=== PATIENT | female | born 1960 | race Caucasian/White ===

== ENCOUNTER → 2017-09-26 | Outpatient (CLI) | payer BC ==
[2017-09-26 10:54] VITALS: BP 129/79; PULSE 69; TEMP 97.7; BMI 64.0
--- NOTE | 2017-09-26 11:40 | P.HPOB ---
History of Present Illness H&P Date: 09/26/17 Chief Complaint: The patient is here for her routine gynecologic exam. This is a 57-year-old with an LMP of 2012. The patient was without gynecologic complaints. She denies any postmenopausal bleeding. She was seen in 2014 because of the small amount of bloody vaginal discharge. Ultrasound was done which showed normal endometrial thickness. It's not had any vaginal bleeding since then. She is without gynecologic complaints. Review of Systems She has gained 4 pounds over the last 3 years. She denies respiratory, cardiac , or G.I. problems. 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 She had a small uterine fibroids measuring 1.3 cm by ultrasound on 09/08/2014. History of Any Multi-Drug Resistant Organisms: None Reported Additional Past Surgical History / Comment(s): D&C-1979. Colonoscopy 2009. Past Psychological History: No Psychological Hx Reported Smoking Status: Current every day smoker (1 pack per day) Past Alcohol Use History: None Reported Past Drug Use History: None Reported Additional History: She has been since 1978. 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 - Past Family History Sister(s) Family Medical History: Cancer (Cervical) Son(s) Family Medical History: AFIB Mother Family Medical History: Coronary Artery Disease (CAD) Medications and Allergies Home Medications Medication Instructions Recorded Confirmed Type Aspirin [Children's Aspirin] mg PO TID 09/26/17 History Atorvastatin [Lipitor] mg PO DAILY 09/26/17 History B12/Levomefolate Calcium/B-6 tab PO DAILY 09/26/17 History [Foltx Tablet] Allergies Allergy/AdvReac Type Severity Reaction Status Date / Time Penicillins AdvReac Rash/Hives Unverified 09/26/17 10:47 Exam Vital Signs Temp Pulse BP 09/26/17 10:50 97.7 F 69 129/79 Intake and Output 09/25/17 09/26/17 09/26/17 22:59 06:59 14:59 Other: Weight 159 kg Height 5'2", BMI 29.1. This is a well-developed well-nourished white female who is alert and oriented times 3 in no acute distress. HEENT: Within normal limits. NECK: Supple without mass or thyromegaly. CHEST AND LUNGS: Clear to auscultation. HEART: Regular rate and rhythm. BREASTS: Are without mass or discharge. AXILLARY EXAM: Negative for adenopathy. BACK: Negative for CVA tenderness. ABDOMEN: Soft, nontender, without palpable masses. PELVIC EXAM: Normal external genitalia with mild atrophy. Cervix and vagina appear normal with mild atrophy. There is no unusual discharge. There is no evidence of prolapse. The uterus is midposition, nongravid size and nontender. There are no palpable adnexal masses or tenderness. RECTAL EXAM: act over vaginal exam is negative for mass or tenderness and is negative for occult blood. EXTREMITIES: Nontender. IMPRESSION: 1. 57-year-old menopausal female with normal gynecologic exam. 2. History of small uterine fibroid measuring 1.3 cm which is not noticeable on exam. PLAN: 1. Pap smear was performed. 2. Self breast awareness was discussed. 3. Screening mammogram is due. She has an appointment on 10/20/2017 for this. The order slip was given to the patient for this. 4. Osteoporosis prevention was discussed. 5. She will return in one year.
== END | disposition home or self-care (01) ==
LOC: WWCWWP 10:29
PROVIDERS: ATTEND Obstetrics & Gynecology
DX: Z53.9 Procedure and treatment not carried out, unspecified reason (principal)

== ENCOUNTER → 2017-10-20 | Outpatient (CLI) | payer BC ==
--- NOTE | 2017-10-25 07:45 | MM ---
Reason for exam: screening (asymptomatic). Last mammogram was performed 3 years and 2 months ago. History: Patient is postmenopausal. Physical Findings: A clinical breast exam by your physician is recommended on an annual basis and results should be correlated with mammographic findings. MG 3D Screening Mammo W/Cad Bilateral CC and MLO view(s) were taken. Prior study comparison: August 27, 2014, bilateral MG screening mammo w CAD. March 12, 2013, bilateral digital screening mammo w/CAD. The breast tissue is almost entirely fat. No significant changes when compared with prior studies. ASSESSMENT: Benign, BI-RAD 2 RECOMMENDATION: Routine screening mammogram of both breasts in 1 year.
== END | disposition home or self-care (01) ==
LOC: RADMAMWWP 10:09
PROVIDERS: ATTEND Obstetrics & Gynecology
DX: Z12.31 Encounter for screening mammogram for malignant neoplasm of breast (principal)
CPT/HCPCS: 77063; 77067

== ENCOUNTER → 2019-08-28 | Outpatient (CLI) | payer BC ==
--- NOTE | 2019-08-28 22:23 | WWHP ---
[facility] - HISTORY AND PHYSICAL DATE OF DICTATION: 08/28/2019 CHIEF COMPLAINT: The patient is here for her routine gynecologic exam. HISTORY OF PRESENT ILLNESS: This is a 59-year-old G3, P2-0-1-2 with an LMP of 2013. The patient is without gynecologic complaints and denies any postmenopausal bleeding. PAST MEDICAL HISTORY: Hyperlipidemia. MEDICATIONS AND ALLERGIES: Please see the electronic medical record. PAST SURGICAL HISTORY: D&C in 1979, colonoscopy 2009, removal of epiglottic cyst in the past. SOCIAL HISTORY: She smokes 6 cigarettes per day. Alcohol rarely -- about 6 per year. She denies drug use. 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 FAMILY HISTORY: Sister had cervical cancer and another sister has had hypercalcemia and heart problems. Son has atrial fibrillation. Mother with coronary artery disease. 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 REVIEW OF SYSTEMS: She has gained about 10 pounds over the last year. She denies respiratory, cardiac or GI problems. PHYSICAL EXAMINATION: Blood pressure 122/79, height 5 feet 2 inches, weight 169 pounds. Temperature 98.5, pulse 66, pulse oximeter 96%. This is a well-developed, well-nourished white female who is alert and oriented x3, in no acute distress. HEENT: Within normal limits. NECK: Supple without mass or thyromegaly. CHEST AND LUNGS: Clear to auscultation. HEART: Regular rate and rhythm. Breasts are without mass or discharge. Axillary exam is negative for adenopathy. BACK: Negative for CVA tenderness. ABDOMEN: Soft, nontender, without palpable masses. PELVIC EXAM: External genitalia reveal mild atrophy without lesions. Cervix and vagina appear normal with mild atrophy. There is no unusual discharge and no evidence of pelvic prolapse. The uterus is mid position, non-gravid size and nontender. There are no palpable adnexal masses or tenderness. Rectovaginal exam is negative for mass or tenderness and is negative for occult blood. EXTREMITIES: Nontender. IMPRESSION: 1. [id number] menopausal female with normal gynecologic exam. 2. History of small uterine fibroid, which is not noticeable on examination today. PLAN: 1. Pap smear was deferred since she had a normal one on 09/26/2017. 2. Self breast awareness was discussed with the patient. 3. Screening mammogram is due. The order slip was given to the patient for this and she will schedule this in the near future. 4. Osteoporosis prevention was discussed. I have recommended bone density screening, since she has never had this done. The order slip was given to the patient for this. 5. I have recommended screening colonoscopy, since it has been about 10 years. She states she will be speaking with her primary care physician about this in the near future. 6. I have recommended that she quit smoking, and we have discussed many reasons why this is important. 7. She will return in one year for her well-woman examination. MMODL / IJN: [id number] /
[2019-08-30 09:22] VITALS: BP 122/79; PULSE 66; RESP 18; TEMP 98.5
== END | disposition home or self-care (01) ==
LOC: WWCWWP 09:00
PROVIDERS: ATTEND Obstetrics & Gynecology
DX: Z53.9 Procedure and treatment not carried out, unspecified reason (principal)

== ENCOUNTER → 2019-10-23 | Outpatient (CLI) | payer BC ==
--- NOTE | 2019-10-24 10:56 | MM ---
Reason for exam: screening (asymptomatic). Last mammogram was performed 2 years ago. History: Patient is postmenopausal. Physical Findings: A clinical breast exam by your physician is recommended on an annual basis and results should be correlated with mammographic findings. MG 3D Screening Mammo W/Cad Bilateral CC and MLO view(s) were taken. Prior study comparison: October 20, 2017, bilateral MG 3d screening mammo w/cad. August 27, 2014, bilateral MG screening mammo w CAD. There are scattered fibroglandular densities. There is no discrete abnormality. No significant changes when compared with prior studies. ASSESSMENT: Negative, BI-RAD 1 RECOMMENDATION: Routine screening mammogram of both breasts in 1 year.
--- NOTE | 2019-10-24 16:47 | BD ---
EXAMINATION TYPE: Axial Bone Density DATE OF EXAM: 10/23/2019 COMPARISON: NONE CLINICAL HISTORY: 59-year-old female postmenopausal screening Height: 62 Weight: 161.8 FRAX RISK QUESTIONS: Alcohol (3 or more units per day): no Family History (Parent hip fracture): no Glucocorticoids (More than 3mos): no (Ex: prednisone, prednisolone, methylprednisolone, dexamethasone, and hydrocortisone). History of Fracture in Adulthood: no Secondary Osteoporosis: 1. Type 1 Diabetes: no 2. Hyperthyroidism: no 3. Menopause before 45: no 4. Malnutrition: no 5. Chronic liver disease: no Rheumatoid Arthritis: no Current Tobacco Use: yes RISK FACTORS HISTORY OF: Family History of Osteoporosis: no Active: yes Diet low in dairy products/other sources of calcium: yes Postmenopausal woman: age52 Lost more than 2 inches in height since high school: no MEDICATIONS: aspirin, vit b complex Additional History: EXAM MEASUREMENTS: Bone mineral densitometry was performed using the [employer] System. Bone mineral density as measured about the Lumbar spine is: ----- L1-L4(G/cm2): 1.085 T Score Values are as follows: ----- L2: -1.4 ----- L3: 0.0 ----- L4: -1.0 ----- L1-L4: -0.8 Bone mineral density : baseline Bone mineral density about the R hip (g/cm2): 1.009 Bone mineral density about the L hip (g/cm2): 0.928 T Score values are as follows: -----R Neck: -0.2 -----L Neck: -0.8 -----R Total: -0.3 -----L Total: -0.3 Bone mineral density : baseline IMPRESSION: Normal (Values between +1 and -1 indicate normal bone mass). Note that measurements are approaching o steopenia in the lumbar spine. Consider repeating this study in 5 years or sooner if there is some new clinical indication. NOTE: T-SCORE=SD OF THE YOUNG ADULT MEAN.
== END | disposition home or self-care (01) ==
LOC: RADMAMWWP 15:38
PROVIDERS: ATTEND Obstetrics & Gynecology
DX: Z12.31 Encounter for screening mammogram for malignant neoplasm of breast (principal); M85.88 Other specified disorders of bone density and structure, other site; Z78.0 Asymptomatic menopausal state
CPT/HCPCS: 77063; 77067; 77080

== ENCOUNTER 2021-09-20 20:40 | Inpatient (IN) | payer BC ==
[2021-09-20] MEDS ORDERED: KETOROLAC 15 MG/ML 1 ML VIAL IVP STA (23:05)
[2021-09-20] MEDS ORDERED: MORPHINE SULFATE 4 MG/ML SYRINGE IV STA (23:05)
[2021-09-20] MEDS ORDERED: ONDANSETRON 4 MG/2 ML VIAL IVP STA (23:05)
[2021-09-20] MEDS ORDERED: SODIUM CHLORIDE 0.9% 1,000 ML IV STA (23:05)
--- NOTE | 2021-09-20 23:07 | ED ---
Abdominal Pain HPI - General Chief Complaint: Abdominal Pain Stated Complaint: right upper quadrant pain Time Seen by Provider: 09/20/21 23:05 Source: patient Mode of arrival: ambulatory Limitations: no limitations - Related Data Home Medications Medication Instructions Recorded Confirmed Aspirin [Children's Aspirin] 81 mg PO TID 09/26/17 08/28/19 Atorvastatin [Lipitor] 10 mg PO DAILY 09/26/17 08/28/19 B12/Levomefolate Calcium/B-6 1 tab PO DAILY 09/26/17 08/28/19 [Foltx Tablet] Allergies Allergy/AdvReac Type Severity Reaction Status Date / Time Penicillins AdvReac Rash/Hives Verified 09/20/21 21:06 Review of Systems ROS Statement: Those systems with pertinent positive or pertinent negative responses have been documented in the HPI. ROS Other: All systems not noted in ROS Statement are negative. 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 She had a small uterine fibroids measuring 1.3 cm by ultrasound on 09/08/2014. History of Any Multi-Drug Resistant Organisms: None Reported Additional Past Surgical History / Comment(s): D&C-1979. Colonoscopy 2009. right wrist cyst Past Psychological History: No Psychological Hx Reported Smoking Status: Never smoker Past Alcohol Use History: None Reported Past Drug Use History: None Reported - Past Family History Sister(s) Family Medical History: Cancer Son(s) Family Medical History: AFIB Mother Family Medical History: Coronary Artery Disease (CAD) General Exam Limitations: no limitations Course Vital Signs 09/20/21 09/21/21 21:07 00:14 Temperature 98.1 F Pulse Rate 63 55 L Respiratory 16 16 Rate Blood Pressure 147/87 136/67 O2 Sat by Pulse 98 96 Oximetry Medical Decision Making - Lab Data Result diagrams: 09/20/21 23:42 09/20/21 23:42 Lab Results 09/20/21 09/20/21 09/20/21 Range/Units 23:42 23:42 23:42 WBC 11.8 H (3.8-10.6) k/uL RBC 4.76 (3.80-5.40) m/uL Hgb 14.6 (11.4-16.0) gm/dL Hct 43.4 (34.0-46.0) % MCV 91.2 (80.0-100.0) fL MCH 30.6 (25.0-35.0) pg MCHC 33.6 (31.0-37.0) g/dL RDW 12.5 (11.5-15.5) % Plt Count 272 (150-450) k/uL MPV 7.2 Neutrophils % 88 % Lymphocytes % 8 % Monocytes % 3 % Eosinophils % 1 % Basophils % 0 % Neutrophils # 10.3 H (1.3-7.7) k/uL Lymphocytes # 0.9 L (1.0-4.8) k/uL Monocytes # 0.4 (0-1.0) k/uL Eosinophils # 0.1 (0-0.7) k/uL Basophils # 0.0 (0-0.2) k/uL PT 10.1 (9.0-12.0) sec INR 0.9 (<1.2) APTT 22.7 (22.0-30.0) sec Sodium 137 (137-145) mmol/L Potassium 3.9 (3.5-5.1) mmol/L Chloride 102 (98-107) mmol/L Carbon Dioxide 26 (22-30) mmol/L Anion Gap 9 mmol/L BUN 12 (7-17) mg/dL Creatinine 0.71 (0.52-1.04) mg/dL Est GFR (CKD-EPI)AfAm >90 (>60 ml/min/1.73 sqM) Est GFR (CKD-EPI)NonAf >90 (>60 ml/min/1.73 sqM) Glucose 110 H (74-99) mg/dL Plasma Lactic Acid Baltazar (0.7-2.0) mmol/L Calcium 9.2 (8.4-10.2) mg/dL Total Bilirubin 4.0 H (0.2-1.3) mg/dL AST 474 H (14-36) U/L ALT 808 H (4-34) U/L Alkaline Phosphatase 232 H (38-126) U/L Troponin I (0.000-0.034) ng/mL Total Protein 6.9 (6.3-8.2) g/dL Albumin 4.2 (3.5-5.0) g/dL Amylase (30-110) U/L 09/20/21 09/20/21 Range/Units 23:42 23:42 WBC (3.8-10.6) k/uL RBC (3.80-5.40) m/uL Hgb (11.4-16.0) gm/dL Hct (34.0-46.0) % MCV (80.0-100.0) fL MCH (25.0-35.0) pg MCHC (31.0-37.0) g/dL RDW (11.5-15.5) % Plt Count (150-450) k/uL MPV Neutrophils % % Lymphocytes % % Monocytes % % Eosinophils % % Basophils % % Neutrophils # (1.3-7.7) k/uL Lymphocytes # (1.0-4.8) k/uL Monocytes # (0-1.0) k/uL Eosinophils # (0-0.7) k/uL Basophils # (0-0.2) k/uL PT (9.0-12.0) sec INR (<1.2) APTT (22.0-30.0) sec Sodium (137-145) mmol/L Potassium (3.5-5.1) mmol/L Chloride (98-107) mmol/L Carbon Dioxide (22-30) mmol/L Anion Gap mmol/L BUN (7-17) mg/dL Creatinine (0.52-1.04) mg/dL Est GFR (CKD-EPI)AfAm (>60 ml/min/1.73 sqM) Est GFR (CKD-EPI)NonAf (>60 ml/min/1.73 sqM) Glucose (74-99) mg/dL Plasma Lactic Acid Baltazar 1.0 (0.7-2.0) mmol/L Calcium (8.4-10.2) mg/dL Total Bilirubin (0.2-1.3) mg/dL AST (14-36) U/L ALT (4-34) U/L Alkaline Phosphatase (38-126) U/L Troponin I <0.012 (0.000-0.034) ng/mL Total Protein (6.3-8.2) g/dL Albumin (3.5-5.0) g/dL Amylase (30-110) U/L Disposition Clinical Impression: Abdominal colic, Pancreatitis, Cholecystitis Disposition: ADMITTED IP TO THIS HOSP Condition: Fair Is patient prescribed a controlled substance at d/c from ED?: No Referrals: Prasad Cooley MD [Primary Care Provider] - 1-2 days
[2021-09-21 00:03] LABS: Basophils % (A) 0 %; Eosinophils # (A) 0.1 k/uL (0-0.7); Eosinophils % (A) 1 %; HCT 43.4 % (34.0-46.0); HGB 14.6 gm/dL (11.4-16.0); Lymphocytes # (A) 0.9 k/uL (1.0-4.8); Lymphocytes % (A) 8 %; MCH 30.6 pg (25.0-35.0); MCHC 33.6 g/dL (31.0-37.0); MCV 91.2 fL (80.0-100.0); Mean Platelet Volume 7.2; Monocytes # (A) 0.4 k/uL (0-1.0); Monocytes % (A) 3 %; Neutrophils # (A) 10.3 k/uL (1.3-7.7); Neutrophils % (A) 88 %; Platelet Count 272 k/uL (150-450); RBC 4.76 m/uL (3.80-5.40); RDW 12.5 % (11.5-15.5); WBC 11.8 k/uL (3.8-10.6)
[2021-09-21 00:12] LABS: INR 0.9 (<1.2); Partial Thromboplastin Time 22.7 sec (22.0-30.0); Prothrombin Time 10.1 sec (9.0-12.0)
[2021-09-21 00:21] LABS: AST 474 U/L (14-36); African American GFR (CKD) >90 (>60 ml/min/1.73 sqM); Albumin 4.2 g/dL (3.5-5.0); Alkaline Phosphatase 232 U/L (38-126); Anion Gap 9 mmol/L; Blood Urea Nitrogen 12 mg/dL (7-17); Calcium 9.2 mg/dL (8.4-10.2); Carbon Dioxide 26 mmol/L (22-30); Chloride 102 mmol/L (98-107); Glucose 110 mg/dL (74-99); Non-African American GFR(CKD) >90 (>60 ml/min/1.73 sqM); Potassium 3.9 mmol/L (3.5-5.1); Sodium 137 mmol/L (137-145); Total Protein 6.9 g/dL (6.3-8.2)
--- NOTE | 2021-09-21 00:40 | US ---
EXAMINATION TYPE: US gallbladder DATE OF EXAM: 09/21/2021 COMPARISON: NONE CLINICAL HISTORY: pain. RUQ pain x 6 days TECHNIQUE: Multiple sonographic images of the right upper quadrant are obtained. FINDINGS: EXAM MEASUREMENTS: Liver Length: 12.0 cm Gallbladder Wall: 0.61 cm CBD: 0.61 cm Right Kidney: 10.5 x 5.4 x 5.1 cm EXPORT COORDINATOR NOTES: Pancreas: Parts visualized WNL Liver: wnl Gallbladder: Thickened GB wall, ? sludge Evidence for sonographic Lamb's sign: Yes CBD: wnl Right Kidney: wnl IMPRESSION: There is mild gallbladder wall thickening. No gallstones identified. No dilated ducts.
[2021-09-21] MEDS ORDERED: HYDROmorphone 1 MG/ML 1 ML SYRINGE IVP PRN (00:47)
[2021-09-21] MEDS ORDERED: ONDANSETRON 4 MG/2 ML VIAL IVP PRN (00:47)
[2021-09-21] MEDS ORDERED: NALOXONE 0.4 MG/ML 1 ML VIAL IV PRN (00:47)
[2021-09-21 00:59] LABS: ALT 808 U/L (4-34)
[2021-09-21] MEDS ORDERED: LEVOFLOXACIN 500MG-D5W PMX 500 MG in DEXTROSE/WATER 1 100ML.BAG IVPB STA (01:00)
[2021-09-21] MEDS ORDERED: metroNIDAZOLE-NS PMX 500 MG in SALINE 1 100ML.BAG IVPB STA (01:00)
[2021-09-21 01:01] LABS: Amylase 4378 U/L (30-110)
[2021-09-21 01:02] LABS: Lipase >20000 U/L (23-300)
[2021-09-21 02:06] LABS: Appearance,Urine Cloudy (Clear); Bacteria,Urine Rare /hpf; Bilirubin,Urine 2+ (Negative); Blood,Urine Negative (Negative); Color,Urine Dark Yellow; Glucose,Urine (UA) Negative (Negative); Hyaline Casts,Urine 1 /lpf (0-2); Ketones,Urine 3+ (Negative); Leukocyte Esterase,Urine Negative (Negative); Mucus,Urine Moderate /hpf; Nitrite,Urine Negative (Negative); Protein,Urine Trace (Negative); RBC,Urine <1 /hpf (0-5); Squamous Epithelial Cell,Urine 5 /hpf (0-4); WBC,Urine 1 /hpf (0-5)
[2021-09-21] MEDS: SODIUM CHLORIDE 0.9% 1,000 ML IV SCH ×2 (02:34→09:03)
[2021-09-21] MEDS: PANTOPRAZOLE 40 MG/10 ML VIAL IV SCH (09:02)
[2021-09-21 11:09] LABS: Basophils # (A) 0.1 k/uL (0-0.2); Basophils % (A) 1 %; Eosinophils # (A) 0.2 k/uL (0-0.7); Eosinophils % (A) 2 %; HCT 41.6 % (34.0-46.0); HGB 13.1 gm/dL (11.4-16.0); Lymphocytes # (A) 1.5 k/uL (1.0-4.8); Lymphocytes % (A) 16 %; MCH 29.5 pg (25.0-35.0); MCHC 31.4 g/dL (31.0-37.0); Mean Platelet Volume 7.4; Monocytes # (A) 0.4 k/uL (0-1.0); Monocytes % (A) 5 %; Neutrophils # (A) 7.3 k/uL (1.3-7.7); Neutrophils % (A) 77 %; Platelet Count 268 k/uL (150-450); RBC 4.43 m/uL (3.80-5.40); RDW 12.7 % (11.5-15.5); WBC 9.5 k/uL (3.8-10.6)
--- NOTE | 2021-09-21 11:15 | P.CONS ---
History of Present Illness - Reason for Consult Consult date: 09/21/21 Gallstone pancreatitis Requesting physician: Shailesh Mccord - Chief Complaint Right upper quadrant pain - History of Present Illness This is a pleasant 61-year-old female with a past medical history of hyperlipidemia who presented to the emergency department late yesterday evening with complaints of right upper quadrant pain associated with nausea and vomiting. Patient states she has had ongoing gallbladder issues for the last several years she believes since 2016. She states she has been seen before in the emergency department and sent home. She states that she did follow at one time with a surgeon however was during cold and patient was not scheduled for any procedures. She states she started having pain and discomfort history of last week Monday, however yesterday she began with nausea and vomiting and noticed that her urine was becoming dark and she became concerned. She states that in September 2019 she had a similar episode was seen in the ER and underwent what she believes an EGD in 2019 at [facility]. She states that she believes she had a polyp. She she reports most of her pain in the right upper quadrant and epigastric area. He denied any fevers or chills. She had an ultrasound of the gallbladder showing mild gallbladder wall thickening. No gallstones identified. No dilated ducts. CBD within normal limits measuring 0.61 cm. The patient states abdominal pain is improved today. No further nausea or vomiting. She denies any fevers or chills. Labs: WBC 11.8 hemoglobin 14.6 hematocrit 43 platelet count 272 INR 0.9 sodium 137 potassium 3.9 BUN 12 creatinine 0.7 glucose 110 total bilirubin 4.0 AST 474 ALT 808 alkaline phosphatase 232 amylase 4378 lipase greater than 20,000 Review of Systems REVIEW OF SYSTEMS: CARDIOPULMONARY: No chest pain or shortness of breath. Gastrointestinal: Epigastric and right upper quadrant pain. Associated with nausea and vomiting. No hematemesis, coffee-ground emesis. No rectal bleeding, or melena. GENITOURINARY: No dysuria or hematuria. Dark urine. MUSCULOSKELETAL: Reports normal range of motion. SKIN: No rashes. No jaundice. ENDOCRINE: No chills, fevers. No excessive weight gain or loss. No polydipsia or polyuria. PSYCHIATRIC: Unremarkable. NEUROLOGY: No change in mental status. Denies dizziness, headache. ENT: Vision unremarkable. CONSTITUTIONAL: No recent weight loss. No fever, chills, night sweats. 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 She had a small uterine fibroids measuring 1.3 cm by ultrasound on 09/08/2014. History of Any Multi-Drug Resistant Organisms: None Reported Additional Past Surgical History / Comment(s): D&C-1979. Colonoscopy 2009. right wrist cyst Past Psychological History: No Psychological Hx Reported Smoking Status: Never smoker Past Alcohol Use History: None Reported Past Drug Use History: None Reported - Past Family History Sister(s) Family Medical History: Cancer Son(s) Family Medical History: AFIB Mother Family Medical History: Coronary Artery Disease (CAD) Medications and Allergies Home Medications Medication Instructions Recorded Confirmed Type Atorvastatin [Lipitor] 10 mg PO DAILY 09/26/17 09/21/21 History Vitamin B Complex 1 cap PO DAILY 09/21/21 09/21/21 History Allergies Allergy/AdvReac Type Severity Reaction Status Date / Time Penicillins Allergy Rash/Hives Verified 09/21/21 07:33 Physical Exam Vitals: Vital Signs Temp Pulse Resp BP Pulse Ox 09/21/21 09:05 68 20 129/72 97 09/21/21 06:29 98 F 72 20 127/77 97 09/21/21 02:41 55 L 16 137/76 98 09/21/21 00:14 55 L 16 136/67 96 09/20/21 21:07 98.1 F 63 16 147/87 98 Intake and Output 09/20/21 09/21/21 09/21/21 22:59 06:59 14:59 Other: Weight 73.482 kg General appearance: The patient is alert, oriented, appears in no acute distress. HET: Head is normocephalic and atraumatic. Conjunctiva pink. Sclera anicteric. Neck: Supple without lymphadenopathy. Trachea midline. Heart: S1 S2. Regular rate and rhythm. Lungs: Clear to auscultation. Abdomen: Soft, mild right upper quadrant tenderness nondistended with bowel sounds. No guarding or rigidity. Skin: No rashes. No jaundice. Extremities: Normal skin color and turgor. No pedal edema. Neurological: No focal deficits. Alert and oriented x3. Results CBC & Chem 7: 09/21/21 10:12 09/21/21 10:12 Labs: Abnormal Lab Results - Last 24 Hours (Table) 09/20/21 09/20/21 09/21/21 Range/Units 23:42 23:42 01:35 WBC 11.8 H (3.8-10.6) k/uL Neutrophils # 10.3 H (1.3-7.7) k/uL Lymphocytes # 0.9 L (1.0-4.8) k/uL Glucose 110 H (74-99) mg/dL Total Bilirubin 4.0 H (0.2-1.3) mg/dL AST 474 H (14-36) U/L ALT 808 H (4-34) U/L Alkaline Phosphatase 232 H (38-126) U/L Amylase 4378 H* (30-110) U/L Lipase >13904 H (23-300) U/L Urine Appearance Cloudy H (Clear) Urine Protein Trace H (Negative) Urine Ketones 3+ H (Negative) Urine Bilirubin 2+ H (Negative) Ur Squamous Epith Cells 5 H (0-4) /hpf Urine Bacteria Rare H (None) /hpf Urine Mucus Moderate H (None) /hpf US - abdomen: report reviewed (Mild gallbladder wall thickening. No gallstones identified. No dilated ducts.) Assessment and Plan (1) Pancreatitis Narrative/Plan: 61-year-old female with a history of gallbladder dysfunction for multiple years. Patient is not followed with a general surgeon. Started having symptoms since last Monday with yesterday becoming concerned with increased abdominal pain, nausea vomiting and dark urine. Patient was noted to have significant elevated amylase and lipase, as well as LFTs. Showing mild gallbladder wall thickening, no gallstones, no CBD dilation. Patient denies fevers or chills pain is improving. Was able to obtain patient's prior EGD/[facility]US from [facility] done on 01/03/2020. EGD revealed multiple rings seen in the esophagus status post biopsy, small sliding hiatal hernia, nodule seen and third portion of duodenum status post biopsies. Endoscopic ultrasound revealed pancreas parenchyma appeared normal, main pancreatic was not dilated. There was no cyst or mass lesions seen. Gallbladder appeared truncated with multiple gallstones, gallbladder wall is mildly thickened at 2.8 mm. Common bile duct not dilated, no. Pancreatic epigastric or celiac ulcers. Will obtain MRCP for further evaluation of possible choledocholithiasis clinical picture is consistent with gallstone pancreatitis. Current Visit: Yes Status: Acute Code(s): K85.90 - ACUTE PANCREATITIS WITHOUT NECROSIS OR INFECTION, UNSP SNOMED Code(s): 11302115 (2) Cholecystitis Current Visit: Yes Status: Acute Code(s): K81.9 - CHOLECYSTITIS, UNSPECIFIED SNOMED Code(s): 85725540 Plan: 1. Continue symptomatic and supportive care 2. Continue antiemetics as needed 3. Pain medication as needed 4. Continue IV antibiotics as ordered 5. MRCP ordered 6. Repeat CBC, CMP, lipase 7. Keep nothing by mouth for now, may advance to clear liquid diet after MRCP 8. Continue with recommendations from general surgery 9. Please obtain records from [facility] in 2020 10. Further recommendations forthcoming based on clinical course Thank you for this consultation, we will continue to follow. Dr. Renee Michael I agree with the dictator's note, documented as a scribe by Christina Benavidez.
[2021-09-21 11:26] LABS: ALT 558 U/L (4-34); AST 253 U/L (14-36); African American GFR (CKD) >90 (>60 ml/min/1.73 sqM); Albumin 3.4 g/dL (3.5-5.0); Albumin/Globulin Ratio 1.4; Alkaline Phosphatase 197 U/L (38-126); Anion Gap 5 mmol/L; Blood Urea Nitrogen 11 mg/dL (7-17); Calcium 7.8 mg/dL (8.4-10.2); Carbon Dioxide 24 mmol/L (22-30); Chloride 109 mmol/L (98-107); Globulin 2.4 g/dL; Glucose 70 mg/dL (74-99); Non-African American GFR(CKD) >90 (>60 ml/min/1.73 sqM); Potassium 3.8 mmol/L (3.5-5.1); Sodium 138 mmol/L (137-145); Total Bilirubin 1.2 mg/dL (0.2-1.3); Total Protein 5.8 g/dL (6.3-8.2)
--- NOTE | 2021-09-21 11:26 | P.GSCN ---
History of Present Illness Consult date: 09/21/21 History of present illness: CHIEF COMPLAINT: Abdominal pain HISTORY OF PRESENT ILLNESS: This is a 61-year-old female who presented to the hospital with complaints of right upper quadrant epigastric abdominal pain 1 week. Patient reports that she's had these types of abdominal pains off and on for years. She has a history of gallstones. Usually the pain resolves on its own. She does report increasing pain after eating greasy or fatty foods. She came into the ER because she started having vomiting and her urine became dark. She reports that the pain is in the right upper quadrant radiates the epigastric and down the right side of the abdomen. Her liver enzymes and pancreatic enzymes are elevated. She is scheduled for an MRCP today and is followed by GI service. She is currently nothing by mouth. She reports that her pain has improved. Ultrasound had shown mild gallbladder wall thickening. No gallstones. No dilated ducts. Positive Lamb sign. She denies any fever chills or sweats. Denies alcohol use. PAST MEDICAL HISTORY: Hyperlipidemia, uterine fibroids PAST SURGICAL HISTORY: D&C, colonoscopy, EGD MEDICATIONS: See list. ALLERGIES: See list. SOCIAL HISTORY: No illicit drug use. Smoker REVIEW OF SYSTEMS: CONSTITUTIONAL: Denies fever or chills. HEENT: Denies blurred vision, vision changes, or eye pain. Denies hemoptysis CARDIOVASCULAR: Denies chest pain or pressure. RESPIRATORY: No shortness of breath. GASTROINTESTINAL: See HPI for pertinent findings HEMATOLOGIC: Denies bleeding disorders. GENITOURINARY: Denies any blood in urine or increased urinary frequency. SKIN: Denies pruitis. Denies rash. PHYSICAL EXAM: VITAL SIGNS: Reviewed GENERAL: Well-developed in no acute distress. HEENT: No sclera icterus. Extraocular movements grossly intact. Moist buccal mucosa. Head is atraumatic, normocephalic. No nasal drainage. ABDOMEN: Soft. Nondistended. Right upper quadrant and epigastric tenderness NEUROLOGIC: Alert and oriented. Cranial nerves II through XII grossly intact. LABORATORY DATA: WBC 11.8 down to 9.5 Hgb 13.1 platelets 268 INR 0.9 Sodium 137 potassium 3.9 creatinine 0.7 Total bilirubin 4.0 AST 474 ALT 808 alk phos 232 Lipase greater than 20,000 amylase 4378 IMAGING: Abdominal ultrasound as stated above ASSESSMENT: 1. Acute Pancreatitis 2. Possible choledocholithiasis 3. Cholecystitis 4. History of gallstones PLAN: -Patient is scheduled for MRCP today -Await further GI recommendations -Patient will need laparoscopic cholecystectomy and this possibly can be done outpatient -Keep patient nothing by mouth -Continue IV fluids -Follow up on repeat LFTs and lipase -Continue antibiotics -Continue supportive care Physician Post Partum Nurse note has been reviewed by physician. Signing provider agrees with the documented findings, assessment, and plan of care. Past Medical History Past Medical History: Hyperlipidemia Additional Past Medical History / Comment(s): PAST [employer] HISTORY: She has no history of STDs. She had a small uterine fibroids measuring 1.3 cm by ultrasound on 09/08/2014. History of Any Multi-Drug Resistant Organisms: None Reported Additional Past Surgical History / Comment(s): D&C-1979. Colonoscopy 2009. right wrist cyst Past Psychological History: No Psychological Hx Reported Smoking Status: Never smoker Past Alcohol Use History: None Reported Past Drug Use History: None Reported - Past Family History Sister(s) Family Medical History: Cancer Son(s) Family Medical History: AFIB Mother Family Medical History: Coronary Artery Disease (CAD) Medications and Allergies Home Medications Medication Instructions Recorded Confirmed Type Atorvastatin [Lipitor] 10 mg PO DAILY 09/26/17 09/21/21 History Vitamin B Complex 1 cap PO DAILY 09/21/21 09/21/21 History Allergies Allergy/AdvReac Type Severity Reaction Status Date / Time Penicillins Allergy Rash/Hives Verified 09/21/21 07:33 Surgical - Exam Vital Signs Temp Pulse Resp BP Pulse Ox 98.1 F 63 16 147/87 98 09/20/21 21:07 09/20/21 21:07 09/20/21 21:07 09/20/21 21:07 09/20/21 21:07 Results - Labs 09/21/21 10:12 09/20/21 23:42 Abnormal Lab Results - Last 24 Hours (Table) 09/20/21 09/20/21 09/21/21 Range/Units 23:42 23:42 01:35 WBC 11.8 H (3.8-10.6) k/uL Neutrophils # 10.3 H (1.3-7.7) k/uL Lymphocytes # 0.9 L (1.0-4.8) k/uL Glucose 110 H (74-99) mg/dL Total Bilirubin 4.0 H (0.2-1.3) mg/dL AST 474 H (14-36) U/L ALT 808 H (4-34) U/L Alkaline Phosphatase 232 H (38-126) U/L Amylase 4378 H* (30-110) U/L Lipase >14801 H (23-300) U/L Urine Appearance Cloudy H (Clear) Urine Protein Trace H (Negative) Urine Ketones 3+ H (Negative) Urine Bilirubin 2+ H (Negative) Ur Squamous Epith Cells 5 H (0-4) /hpf Urine Bacteria Rare H (None) /hpf Urine Mucus Moderate H (None) /hpf Diabetes panel 09/20/21 Range/Units 23:42 Sodium 137 (137-145) mmol/L Potassium 3.9 (3.5-5.1) mmol/L Chloride 102 (98-107) mmol/L Carbon Dioxide 26 (22-30) mmol/L BUN 12 (7-17) mg/dL Creatinine 0.71 (0.52-1.04) mg/dL Glucose 110 H (74-99) mg/dL Calcium 9.2 (8.4-10.2) mg/dL AST 474 H (14-36) U/L ALT 808 H (4-34) U/L Alkaline Phosphatase 232 H (38-126) U/L Total Protein 6.9 (6.3-8.2) g/dL Albumin 4.2 (3.5-5.0) g/dL Calcium panel 09/20/21 Range/Units 23:42 Calcium 9.2 (8.4-10.2) mg/dL Albumin 4.2 (3.5-5.0) g/dL Pituitary panel 09/20/21 Range/Units 23:42 Sodium 137 (137-145) mmol/L Potassium 3.9 (3.5-5.1) mmol/L Chloride 102 (98-107) mmol/L Carbon Dioxide 26 (22-30) mmol/L BUN 12 (7-17) mg/dL Creatinine 0.71 (0.52-1.04) mg/dL Glucose 110 H (74-99) mg/dL Calcium 9.2 (8.4-10.2) mg/dL Adrenal panel 09/20/21 Range/Units 23:42 Sodium 137 (137-145) mmol/L Potassium 3.9 (3.5-5.1) mmol/L Chloride 102 (98-107) mmol/L Carbon Dioxide 26 (22-30) mmol/L BUN 12 (7-17) mg/dL Creatinine 0.71 (0.52-1.04) mg/dL Glucose 110 H (74-99) mg/dL Calcium 9.2 (8.4-10.2) mg/dL Total Bilirubin 4.0 H (0.2-1.3) mg/dL AST 474 H (14-36) U/L ALT 808 H (4-34) U/L Alkaline Phosphatase 232 H (38-126) U/L Total Protein 6.9 (6.3-8.2) g/dL Albumin 4.2 (3.5-5.0) g/dL
[2021-09-21] MEDS: metroNIDAZOLE-NS PMX 500 MG in SALINE 1 100ML.BAG IVPB SCH ×2 (12:43→20:13)
--- NOTE | 2021-09-21 15:28 | MR ---
MR MRCP INDICATION: Patient age:Female; 61 years old; Reason for study: elevated LFTS, RUQ pain; COMPARISON: Gallbladder ultrasound 09/20/2021. TECHNIQUE: Multi planar, T2-weighted imaging with and without fat saturation and chemical shift imag ing was performed of the abdomen. Then, heavily T2 weighted imaging (half-Fourier acquisition single- shot turbo spin-echo) was utilized in order to study the biliary system. Maximum intensity projectio n images were reconstructed from the original data of the biliary tree. No Gadolinium given. FINDINGS: MRCP: The intrahepatic ducts have a normal appearance. The common bile duct at the level of the bautista creatic head measures 5 mm in size. The common hepatic duct measures 5 mm in size. The pancreatic du ct is normal. The gallbladder appears demonstrates fundal adenomyomatosis changes. The gallbladder is relatively de compressed. Abdomen: The spleen, adrenal glands, kidneys, and pancreas have a normal noncontrast appearance. The liver demonstrates increase signal on out of phase imaging suggestive of iron deposition. Additio nal high T2 foci within the liver consistent with cysts. Small fat-containing umbilical hernia. Few s cattered clonic diverticula are present. IMPRESSION: 1. No evidence to suggest ductal stricture, choledocholithiasis, or biliary ductal dilatation. 2. Iron deposition within the liver. 3. Gallbladder adenomyomatosis. 4. Colonic diverticulosis.
--- NOTE | 2021-09-21 15:31 | XR ---
EXAMINATION TYPE: XR chest 2V DATE OF EXAM: 09/21/2021 COMPARISON: None INDICATION: Presurgical clearance TECHNIQUE: Frontal and lateral views of the chest are obtained. FINDINGS: The heart size is normal. The pulmonary vasculature is normal. The lungs are clear. IMPRESSION: 1. No acute pulmonary process.
[2021-09-21] MEDS: DEXTROSE 5%-0.45% NACL 1,000 ML IV SCH ×2 (16:51→23:37)
--- NOTE | 2021-09-21 19:10 | P.CONS ---
History of Present Illness - Reason for Consult Consult date: 09/21/21 Medical management Requesting physician: Shailesh Mccord - Chief Complaint Abdominal pain - History of Present Illness This is a very pleasant 61-year-old patient who follows with Dr. Prasad Cooley. Patient is accompanied by her at the bedside. About a week ago was patient started having increasing right upper quadrant pain on and off but became more and more severe. Patient started vomiting yesterday at least about 5 times. No fever no chills. Urine became dark in color. Patient's had these episodes before but not to such degree. Pain is predominantly in the upper abdomen and right upper quadrant. No radiation. Review of systems: GEN.: Tired EYES: None HEENT: None NECK: None RESPIRATORY: None CARDIOVASCULAR: None GASTROINTESTINAL: As above GENITOURINARY: Urine stress incontinence MUSCULOSKELETAL: None LYMPHATICS: None HEMATOLOGICAL: None PSYCHIATRY: None NEUROLOGICAL: None Past medical history to include: Hyperlipidemia. Uterine fibroid. 1.3 cm. Social history: No smoking or alcohol. . Family history: Cancer Physical examination: VITAL SIGNS: 98, 72, 20, 127/77, 97% room air GENERAL: BMI 29.6, reclining but awake and in distress. EYES: Pupils equal. Conjunctiva normal. HEENT: External appearance of nose and ears normal, oral cavity grossly normal. NECK: JVD not raised; masses not palpable. HEART: First and second heart sounds are normal; no edema. LUNGS: Respiratory rate normal; clear to auscultation. ABDOMEN: Soft, right upper quadrant tenderness, no guarding rigidity, liver spleen not palpable, no masses palpable. PSYCH: Alert and oriented x3; mood and affect normal. MUSCULOSKELETAL:No Clubbing/cyanosis;muscles-grossly intact NEUROLOGICAL: Cranial nerves grossly intact; no facial asymmetry, power and sensation grossly intact. LYMPHATICS: No lymph nodes palpable in the axilla and neck INVESTIGATIONS, reviewed in the clinical context: September 21: White count 9.5 hemoglobin 13.1 platelets 268 potassium 3.8 BUN 11 creatinine 0.68 total bilirubin 7 AST 253 ALT 558 alkaline phosphatase 197 li pase 9474 EKG tracing personally reviewed by me-sinus bradycardia. 56 Chest x-ray film personally reviewed by me-no obvious infiltrate Admission labs: White count 9.8 hemoglobin 14.6 bilirubin 4 AST 474 ALT 808 amylase 4378 lipase greater than 20,000 UA ketone 3+ bilirubin 2+ Abdominal ultrasound: Mild gallbladder wall thickening. No gallstones identified. No dilated ducts. Assessment and plan: -Acute on cholecystitis. Patient's had intermittent right upper quadrant pain. Suspect underlying gallstones. Might have passed it. IV Levaquin, IV Flagyl. Clear liquid diet. -Suspect gallstone induced severe pancreatitis. MRCP ordered. Pain control -Hyperlipidemia Currently hold Lipitor -Chronic urinary stress incontinence -Starvation ketonuria D5W D5 0.45. K liquid diet. IV Levaquin and Flagyl. Subcu Lovenox. Pain control. Patient getting an MRCP. Care was discussed the patient has been out of the bedside. Question answered Thank you Dr. Mccord Past Medical History Past Medical History: Hyperlipidemia Additional Past Medical History / Comment(s): PAST [employer] HISTORY: She has no history of STDs. She had a small uterine fibroids measuring 1.3 cm by ultrasound on 09/08/2014. History of Any Multi-Drug Resistant Organisms: None Reported Additional Past Surgical History / Comment(s): D&C-1979. Colonoscopy 2009. right wrist cyst Past Psychological History: No Psychological Hx Reported Smoking Status: Never smoker Past Alcohol Use History: None Reported Past Drug Use History: None Reported - Past Family History Sister(s) Family Medical History: Cancer Son(s) Family Medical History: AFIB Mother Family Medical History: Coronary Artery Disease (CAD) Medications and Allergies Home Medications Medication Instructions Recorded Confirmed Type Atorvastatin [Lipitor] 10 mg PO DAILY 09/26/17 09/21/21 History Vitamin B Complex 1 cap PO DAILY 09/21/21 09/21/21 History Allergies Allergy/AdvReac Type Severity Reaction Status Date / Time Penicillins Allergy Rash/Hives Verified 09/21/21 07:33 Physical Exam Vitals: Vital Signs Temp Pulse Resp BP Pulse Ox 09/21/21 09:05 68 20 129/72 97 09/21/21 06:29 98 F 72 20 127/77 97 09/21/21 02:41 55 L 16 137/76 98 09/21/21 00:14 55 L 16 136/67 96 09/20/21 21:07 98.1 F 63 16 147/87 98 Intake and Output 09/20/21 09/21/21 09/21/21 22:59 06:59 14:59 Other: Weight 73.482 kg Results CBC & Chem 7: 09/21/21 10:12 09/21/21 10:12 Labs: Abnormal Lab Results - Last 24 Hours (Table) 09/20/21 09/20/21 09/21/21 Range/Units 23:42 23:42 01:35 WBC 11.8 H (3.8-10.6) k/uL Neutrophils # 10.3 H (1.3-7.7) k/uL Lymphocytes # 0.9 L (1.0-4.8) k/uL Chloride (98-107) mmol/L Glucose 110 H (74-99) mg/dL Calcium (8.4-10.2) mg/dL Total Bilirubin 4.0 H (0.2-1.3) mg/dL AST 474 H (14-36) U/L ALT 808 H (4-34) U/L Alkaline Phosphatase 232 H (38-126) U/L Total Protein (6.3-8.2) g/dL Albumin (3.5-5.0) g/dL Amylase 4378 H* (30-110) U/L Lipase >44160 H (23-300) U/L Urine Appearance Cloudy H (Clear) Urine Protein Trace H (Negative) Urine Ketones 3+ H (Negative) Urine Bilirubin 2+ H (Negative) Ur Squamous Epith Cells 5 H (0-4) /hpf Urine Bacteria Rare H (None) /hpf Urine Mucus Moderate H (None) /hpf 09/21/21 09/21/21 Range/Units 10:12 10:12 WBC (3.8-10.6) k/uL Neutrophils # (1.3-7.7) k/uL Lymphocytes # (1.0-4.8) k/uL Chloride 109 H (98-107) mmol/L Glucose 70 L (74-99) mg/dL Calcium 7.8 L (8.4-10.2) mg/dL Total Bilirubin (0.2-1.3) mg/dL AST 253 H (14-36) U/L ALT 558 H (4-34) U/L Alkaline Phosphatase 197 H (38-126) U/L Total Protein 5.8 L (6.3-8.2) g/dL Albumin 3.4 L (3.5-5.0) g/dL Amylase (30-110) U/L Lipase 9474 H (23-300) U/L Urine Appearance (Clear) Urine Protein (Negative) Urine Ketones (Negative) Urine Bilirubin (Negative) Ur Squamous Epith Cells (0-4) /hpf Urine Bacteria (None) /hpf Urine Mucus (None) /hpf
[2021-09-21] MEDS: HEPARIN SODIUM,PORCINE/PF 5,000 UNIT/0.5 ML SYRINGE SQ SCH (20:14)
[2021-09-21] MEDS: LEVOFLOXACIN 500MG-D5W PMX 500 MG in DEXTROSE/WATER 1 100ML.BAG IVPB SCH (23:50)
[2021-09-22] MEDS: metroNIDAZOLE-NS PMX 500 MG in SALINE 1 100ML.BAG IVPB SCH ×3 (04:20→21:36)
[2021-09-22 07:18] LABS: Basophils # (A) 0.1 k/uL (0-0.2); Basophils % (A) 1 %; Eosinophils # (A) 0.2 k/uL (0-0.7); Eosinophils % (A) 2 %; HCT 36.9 % (34.0-46.0); HGB 12.1 gm/dL (11.4-16.0); Lymphocytes # (A) 1.5 k/uL (1.0-4.8); Lymphocytes % (A) 19 %; MCH 30.8 pg (25.0-35.0); MCHC 32.8 g/dL (31.0-37.0); MCV 93.7 fL (80.0-100.0); Mean Platelet Volume 7.5; Monocytes # (A) 0.4 k/uL (0-1.0); Monocytes % (A) 5 %; Neutrophils # (A) 5.5 k/uL (1.3-7.7); Neutrophils % (A) 72 %; Platelet Count 231 k/uL (150-450); RBC 3.94 m/uL (3.80-5.40); RDW 12.7 % (11.5-15.5); WBC 7.7 k/uL (3.8-10.6)
[2021-09-22 07:31] LABS: ALT 385 U/L (4-34); AST 115 U/L (14-36); African American GFR (CKD) >90 (>60 ml/min/1.73 sqM); Albumin 3.1 g/dL (3.5-5.0); Albumin/Globulin Ratio 1.3; Alkaline Phosphatase 146 U/L (38-126); Anion Gap 4 mmol/L; Blood Urea Nitrogen 5 mg/dL (7-17); Calcium 7.9 mg/dL (8.4-10.2); Carbon Dioxide 25 mmol/L (22-30); Chloride 110 mmol/L (98-107); Globulin 2.3 g/dL; Glucose 121 mg/dL (74-99); Lipase 998 U/L (23-300); Magnesium 1.9 mg/dL (1.6-2.3); Non-African American GFR(CKD) >90 (>60 ml/min/1.73 sqM); Phosphorus 2.6 mg/dL (2.5-4.5); Potassium 3.8 mmol/L (3.5-5.1); Sodium 139 mmol/L (137-145); Total Bilirubin 0.8 mg/dL (0.2-1.3); Total Protein 5.4 g/dL (6.3-8.2)
[2021-09-22] MEDS: HEPARIN SODIUM,PORCINE/PF 5,000 UNIT/0.5 ML SYRINGE SQ SCH ×2 (08:07→21:36)
[2021-09-22] MEDS: PANTOPRAZOLE 40 MG/10 ML VIAL IV SCH (08:54)
--- NOTE | 2021-09-22 10:22 | P.PN ---
Subjective Progress Note Date: 09/22/21 Principal diagnosis: Gallstone pancreatitis This is a pleasant 61-year-old female with a past medical history of hyperlipidemia who presented to the emergency department late yesterday evening with complaints of right upper quadrant pain associated with nausea and vomiting. Patient states she has had ongoing gallbladder issues for the last several years she believes since 2016. She states she has been seen before in the emergency department and sent home. She states that she did follow at one time with a surgeon however was during cold and patient was not scheduled for any procedures. She states she started having pain and discomfort history of last week Monday, however yesterday she began with nausea and vomiting and noticed that her urine was becoming dark and she became concerned. She states that in September 2019 she had a similar episode was seen in the ER and underwent what she believes an EGD in 2019 at [facility]. She states that she believes she had a polyp. She she reports most of her pain in the right upper quadrant and epigastric area. He denied any fevers or chills. She had an ultrasound of the gallbladder showing mild gallbladder wall thickening. No gallstones identified. No dilated ducts. CBD within normal limits measuring 0.61 cm. 09/22/2021: Patient is seen and examined as a follow-up. Abdominal pain improved. No nausea or vomiting. She had her MRCP done yesterday that shows no evidence to suggest ductal stricture, choledocholithiasis or biliary ductal dilation. Iron deposition within the liver. Gallbladder adenomyomatosis. Colonic diverticulitis. Patient is afebrile. No leukocytosis. Total bilirubin 0.8 AST 1:15 ALT 385 alkaline phosphatase 146 lipase 998. Objective - Vital Signs Vital signs: Vital Signs Temp 98.2 F 09/22/21 07:30 Pulse 57 L 09/22/21 07:30 Resp 16 09/22/21 07:30 BP 117/74 09/22/21 07:30 Pulse Ox 98 09/22/21 07:30 FiO2 Intake & Output 09/21/21 09/22/21 09/22/21 18:59 06:59 18:59 Weight 73.482 kg Other: # Voids 2 - Exam General appearance: The patient is alert, oriented, appears in no acute distress. HET: Head is normocephalic and atraumatic. Conjunctiva pink. Sclera anicteric. Neck: Supple without lymphadenopathy. Abdomen: Soft, mild tenderness to the right upper quadrant, nondistended with bowel sounds. No guarding or rigidity. Extremities: Normal skin color and turgor. No pedal edema Skin: No rashes, no jaundice Neurological: No focal deficits. Alert and oriented -3. - Labs CBC & Chem 7: 09/22/21 06:50 09/22/21 06:50 Labs: Abnormal Lab Results - Last 24 Hours (Table) 09/21/21 09/21/21 09/22/21 Range/Units 10:12 10:12 06:50 Chloride 109 H 110 H (98-107) mmol/L BUN 5 L (7-17) mg/dL Glucose 70 L 121 H (74-99) mg/dL Calcium 7.8 L 7.9 L (8.4-10.2) mg/dL AST 253 H 115 H (14-36) U/L ALT 558 H 385 H (4-34) U/L Alkaline Phosphatase 197 H 146 H (38-126) U/L Total Protein 5.8 L 5.4 L (6.3-8.2) g/dL Albumin 3.4 L 3.1 L (3.5-5.0) g/dL Lipase 9474 H 998 H (23-300) U/L Microbiology - Last 24 Hours (Table) 09/21/21 02:20 Blood Culture - Preliminary Blood No Growth after 24 hours 09/21/21 02:10 Blood Culture - Preliminary Blood No Growth after 24 hours Assessment and Plan (1) Pancreatitis Narrative/Plan: 61-year-old female with a history of gallbladder dysfunction for multiple years. Patient is not followed with a general surgeon. Started having symptoms since last Monday with yesterday becoming concerned with increased abdominal pain, nausea vomiting and dark urine. Patient was noted to have significant elevated amylase and lipase, as well as LFTs. Showing mild gallbladder wall thickening, no gallstones, no CBD dilation. Patient denies fevers or chills pain is improving. Was able to obtain patient's prior EGD/[facility]US from [facility] done on 01/03/2020. EGD revealed multiple rings seen in the esophagus status post biopsy, small sliding hiatal hernia, nodule seen and third portion of duodenum status post biopsies. Endoscopic ultrasound revealed pancreas parenchyma appeared normal, main pancreatic was not dilated. There was no cyst or mass lesions seen. Gallbladder appeared truncated with multiple gallstones, gallbladder wall is mildly thickened at 2.8 mm. Common bile duct not dilated, no. Pancreatic epigastric or celiac ulcers. Will obtain MRCP for further evaluation of possible choledocholithiasis clinical picture is consistent with gallstone pancreatitis. The patient had MRCP that shows no evidence of suggest ductal stricture, choledocholithiasis, or biliary ductal dilation. LFTs continued to improve. Lipase improving at 998 today. Abdominal pain improved as well. Likely patient passed CBD stone. No plans at this time for ERCP. Current Visit: Yes Status: Acute Code(s): K85.90 - ACUTE PANCREATITIS WITHOUT NECROSIS OR INFECTION, UNSP SNOMED Code(s): 73736245 (2) Cholecystitis Narrative/Plan: Continue with recommendations from general surgery. Current Visit: Yes Status: Acute Code(s): K81.9 - CHOLECYSTITIS, UNSPECIFIED SNOMED Code(s): 89451180 Plan: 1. Continue symptomatic and supportive care 2. Patient may have clear liquid diet 3. Continue IV antibiotics as ordered 4. Daily CMP 5. No indication for ERCP continue with recommendations from general surgery Thank you for this consultation, we will continue to follow. Dr. Renee Michael I agree with the dictator's note, documented as a scribe by Christina Benavidez.
--- NOTE | 2021-09-22 10:58 | P.PN ---
Subjective Progress Note Date: 09/22/21 CHIEF COMPLAINT: Abdominal pain HISTORY OF PRESENT ILLNESS: Patient's mind bed comfortably. Reports her pain is improved. Tolerating clear liquid diet. MRCP no evidence to suggest ductal stricture, choledocholithiasis or biliary ductal dilatation. Iron deposition within the liver, gallbladder adenomyomatosis and colonic diverticulosis. Chest x-ray no acute pulmonary process. Afebrile. WBC is 7.7H 12.1 platelets 231 sodium 139 potassium is 3.8 creatinine 0.59 total bilirubin normalized at 0.8 L FTs trending downwards. AST 1:15 ALT 385 alk phos 146 lipase trending downwards from [id number] Patient seen and examined with Dr. villalobos PHYSICAL EXAM: VITAL SIGNS: Reviewed. GENERAL: Well-developed in no acute distress. HEENT: No sclera icterus. Extraocular movements grossly intact. Moist buccal mucosa. Head is atraumatic, normocephalic. ABDOMEN: Soft. Nondistended. NEUROLOGIC: Alert and oriented. Cranial nerves II through XII grossly intact. ASSESSMENT: 1. Acute gallstone Pancreatitis. Patient likely passed a stone. 2. Cholecystitis 3. History of gallstones PLAN: -Patient scheduled for laparoscopic cholecystectomy tomorrow, 09/23/[address] villalobos -Continue clear liquid diet for today -Nothing by mouth after midnight -Continue antibiotics -Continue IV fluids -Repeat labs in a.m. Physician [employer] note has been reviewed by physician. Signing provider agrees with the documented findings, assessment, and plan of care. Objective - Vital Signs Vital signs: Vital Signs Temp 98.2 F 09/22/21 07:30 Pulse 57 L 09/22/21 08:00 Resp 16 09/22/21 08:00 BP 117/74 09/22/21 07:30 Pulse Ox 98 09/22/21 07:30 FiO2 Intake & Output 09/21/21 09/22/21 09/22/21 18:59 06:59 18:59 Weight 73.482 kg Other: # Voids 2 - Labs CBC & Chem 7: 09/22/21 06:50 09/22/21 06:50 Labs: Abnormal Lab Results - Last 24 Hours (Table) 09/21/21 09/21/21 09/22/21 Range/Units 10:12 10:12 06:50 Chloride 109 H 110 H (98-107) mmol/L BUN 5 L (7-17) mg/dL Glucose 70 L 121 H (74-99) mg/dL Calcium 7.8 L 7.9 L (8.4-10.2) mg/dL AST 253 H 115 H (14-36) U/L ALT 558 H 385 H (4-34) U/L Alkaline Phosphatase 197 H 146 H (38-126) U/L Total Protein 5.8 L 5.4 L (6.3-8.2) g/dL Albumin 3.4 L 3.1 L (3.5-5.0) g/dL Lipase 9474 H 998 H (23-300) U/L Microbiology - Last 24 Hours (Table) 09/21/21 02:20 Blood Culture - Preliminary Blood No Growth after 24 hours 09/21/21 02:10 Blood Culture - Preliminary Blood No Growth after 24 hours
--- NOTE | 2021-09-22 16:44 | P.PN ---
Progress Note - Text Progress Note Date: 09/22/21 - History of Present Illness This is a very pleasant 61-year-old patient who follows with Dr. Prasad Cooley. Patient is accompanied by her at the bedside. About a week ago was patient started having increasing right upper quadrant pain on and off but became more and more severe. Patient started vomiting yesterday at least about 5 times. No fever no chills. Urine became dark in color. Patient's had these episodes before but not to such degree. Pain is predominantly in the upper abdomen and right upper quadrant. No radiation. Admitted with acute pancreatitis, gallstones hopefully passed September 22: Abdominal pain better. No nausea vomiting. MRCP negative for stone. Plan is for surgery tomorrow. Active Medications Heparin Sodium (Porcine) (Heparin Sodium,Porcine/Pf 5,000 Unit/0.5 Ml Syringe) 5,000 unit SQ Q12HR JOHNNY Last Admin: 09/22/21 08:07 Dose: 5,000 unit Hydromorphone HCl (Hydromorphone 1 Mg/Ml 1 Ml Syringe) 1 mg IVP Q3HR PRN PRN Reason: Severe Pain Levofloxacin 500 mg/ IV (Solution) 100 mls @ 100 mls/hr IVPB Q24H JOHNNY; Protocol Last Admin: 09/21/21 23:50 Dose: 100 mls/hr Metronidazole 500 mg/ IV (Solution) 100 mls @ 100 mls/hr IVPB Q8H JOHNNY; Protocol Last Admin: 09/22/21 08:07 Dose: 100 mls/hr Dextrose/Sodium Chloride (Dextrose 5%-1/2ns Iv Soln) 1,000 mls @ 125 mls/hr IV .Q8H JOHNNY Last Admin: 09/21/21 23:37 Dose: 125 mls/hr Naloxone HCl (Naloxone 0.4 Mg/Ml 1 Ml Vial) 0.2 mg IV Q2M PRN PRN Reason: Opioid Reversal Ondansetron HCl (Ondansetron 4 Mg/2 Ml Vial) 4 mg IVP Q8HR PRN PRN Reason: Nausea And Vomiting Pantoprazole Sodium (Pantoprazole 40 Mg/10 Ml Vial) 40 mg IV DAILY [facility] Last Admin: 09/22/21 08:54 Dose: 40 mg Past medical history to include: Hyperlipidemia. Uterine fibroid. 1.3 cm. Social history: No smoking or alcohol. . Family history: Cancer Physical examination: VITAL SIGNS: 98.2, 57, 16, 170 974, 98% room air GENERAL: Planning bed, more comfortable EYES: Pupils equal. Conjunctiva normal. HEENT: External appearance of nose and ears normal, oral cavity grossly normal. NECK: JVD not raised; masses not palpable. HEART: First and second heart sounds are normal; no edema. LUNGS: Respiratory rate normal; clear to auscultation. ABDOMEN: Soft, mild right upper quadrant tenderness, no guarding rigidity, liver spleen not palpable, no masses palpable. PSYCH: Alert and oriented x3; mood and affect normal. MUSCULOSKELETAL:No Clubbing/cyanosis;muscles-grossly intact INVESTIGATIONS, reviewed in the clinical context: MR CP: Evidence of suggest ductal structure gallstones or dilatation. diverticulosis, colonic September 22: White count 7.7 hemoglobin 12.1 progression 3.8 creatinine 0.59 bilirubin 0.8 AST 115 ALT 385 lipase 998 September 21: White count 9.5 hemoglobin 13.1 platelets 268 potassium 3.8 BUN 11 creatinine 0.68 total bilirubin 7 AST 253 ALT 558 alkaline phosphatase 197 lipase 9474 EKG tracing personally reviewed by me-sinus bradycardia. 56 Chest x-ray film personally reviewed by me-no obvious infiltrate Admission labs: White count 9.8 hemoglobin 14.6 bilirubin 4 AST 474 ALT 808 amylase 4378 lipase greater than 20,000 UA ketone 3+ bilirubin 2+ Abdominal ultrasound: Mild gallbladder wall thickening. No gallstones identified. No dilated ducts. Assessment and plan: -Acute on cholecystitis. Patient's had intermittent right upper quadrant pain. Suspect underlying gallstones. Likely passed a stone. IV Levaquin, IV Flagyl. Clear liquid diet. Pending surgery tomorrow -Suspect gallstone induced severe pancreatitis. : better MRCP unremarkable -Hyperlipidemia Currently hold Lipitor -Chronic urinary stress incontinence -Starvation ketonuria D5W Continue antibiotics IV fluids. Nothing by mouth from midnight. For cholecystectomy tomorrow. Discussed with patient.
[2021-09-22] MEDS: DEXTROSE 5%-0.45% NACL 1,000 ML IV SCH ×3 (23:29→23:34)
[2021-09-22] MEDS: LEVOFLOXACIN 500MG-D5W PMX 500 MG in DEXTROSE/WATER 1 100ML.BAG IVPB SCH (23:30)
[2021-09-23] MEDS: metroNIDAZOLE-NS PMX 500 MG in SALINE 1 100ML.BAG IVPB SCH ×2 (04:07→13:26)
[2021-09-23 06:44] LABS: ALT 295 U/L (4-34); AST 74 U/L (14-36); African American GFR (CKD) >90 (>60 ml/min/1.73 sqM); Albumin 3.1 g/dL (3.5-5.0); Albumin/Globulin Ratio 1.3; Alkaline Phosphatase 134 U/L (38-126); Anion Gap 3 mmol/L; Blood Urea Nitrogen 2 mg/dL (7-17); Calcium 8.3 mg/dL (8.4-10.2); Carbon Dioxide 25 mmol/L (22-30); Chloride 112 mmol/L (98-107); Globulin 2.3 g/dL; Glucose 107 mg/dL (74-99); Lipase 351 U/L (23-300); Non-African American GFR(CKD) >90 (>60 ml/min/1.73 sqM); Potassium 3.6 mmol/L (3.5-5.1); Sodium 140 mmol/L (137-145); Total Bilirubin 0.6 mg/dL (0.2-1.3); Total Protein 5.4 g/dL (6.3-8.2)
[2021-09-23 06:55] LABS: HCT 37.1 % (34.0-46.0); HGB 12.4 gm/dL (11.4-16.0); MCH 31.7 pg (25.0-35.0); MCHC 33.5 g/dL (31.0-37.0); MCV 94.7 fL (80.0-100.0); Mean Platelet Volume 7.9; Platelet Count 232 k/uL (150-450); RBC 3.92 m/uL (3.80-5.40); RDW 13.1 % (11.5-15.5); WBC 6.5 k/uL (3.8-10.6)
[2021-09-23] MEDS: PANTOPRAZOLE 40 MG/10 ML VIAL IV SCH (08:13)
[2021-09-23] MEDS: HEPARIN SODIUM,PORCINE/PF 5,000 UNIT/0.5 ML SYRINGE SQ SCH ×2 (08:13→10:52)
[2021-09-23] MEDS ORDERED: LACTATED RINGERS 1,000 ML IV SCH (10:25)
[2021-09-23] MEDS: DEXTROSE 5%-0.45% NACL 1,000 ML IV SCH ×2 (10:50→13:57)
--- NOTE | 2021-09-23 11:09 | P.PN ---
Subjective Progress Note Date: 09/23/21 Principal diagnosis: Gallstone pancreatitis This is a pleasant 61-year-old female with a past medical history of hyperlipidemia who presented to the emergency department late yesterday evening with complaints of right upper quadrant pain associated with nausea and vomiting. Patient states she has had ongoing gallbladder issues for the last several years she believes since 2016. She states she has been seen before in the emergency department and sent home. She states that she did follow at one time with a surgeon however was during cold and patient was not scheduled for any procedures. She states she started having pain and discomfort history of last week Monday, however yesterday she began with nausea and vomiting and noticed that her urine was becoming dark and she became concerned. She states that in September 2019 she had a similar episode was seen in the ER and underwent what she believes an EGD in 2019 at [facility]. She states that she believes she had a polyp. She she reports most of her pain in the right upper quadrant and epigastric area. He denied any fevers or chills. She had an ultrasound of the gallbladder showing mild gallbladder wall thickening. No gallstones identified. No dilated ducts. CBD within normal limits measuring 0.61 cm. 09/22/2021: Patient is seen and examined as a follow-up. Abdominal pain improved. No nausea or vomiting. She had her MRCP done yesterday that shows no evidence to suggest ductal stricture, choledocholithiasis or biliary ductal dilation. Iron deposition within the liver. Gallbladder adenomyomatosis. Colonic diverticulitis. Patient is afebrile. No leukocytosis. Total bilirubin 0.8 AST 1:15 ALT 385 alkaline phosphatase 146 lipase 998. 09/23/2021: Patient seen and examined as a follow-up for gallstone pancreatitis. Again she states abdominal pain is improved. She is scheduled to undergo cholecystectomy today with Dr. Mccord. She denies any fevers or chills. LFTs continue to improve. Total bilirubin 0.6 AST 74 ALT 295 alkaline phosphatase 134 lipase 351. Objective - Vital Signs Vital signs: Vital Signs Temp 98.0 F 09/23/21 07:35 Pulse 64 09/23/21 07:35 Resp 18 09/23/21 07:35 BP 144/84 09/23/21 07:35 Pulse Ox 94 L 09/23/21 07:35 FiO2 Intake & Output 09/22/21 09/23/21 09/23/21 18:59 06:59 18:59 Intake Total 2100 Balance 2100 Intake: Intake, IV Titration 1500 Amount Dextrose 5%-0.45% NaCl 1, 1500 000 ml @ 125 mls/hr IV . Q8H [facility] Rx#:[id number] Oral 600 Other: # Voids 4 3 - Exam General appearance: The patient is alert, oriented, appears in no acute distress. HET: Head is normocephalic and atraumatic. Conjunctiva pink. Sclera anicteric. Neck: Supple without lymphadenopathy. Abdomen: Soft, mild tenderness to the right upper quadrant, nondistended with bowel sounds. No guarding or rigidity. Extremities: Normal skin color and turgor. No pedal edema Skin: No rashes, no jaundice Neurological: No focal deficits. Alert and oriented -3. - Labs CBC & Chem 7: 09/23/21 05:34 09/23/21 05:34 Labs: Abnormal Lab Results - Last 24 Hours (Table) 09/23/21 Range/Units 05:34 Chloride 112 H (98-107) mmol/L BUN 2 L (7-17) mg/dL Glucose 107 H (74-99) mg/dL Calcium 8.3 L (8.4-10.2) mg/dL AST 74 H (14-36) U/L ALT 295 H (4-34) U/L Alkaline Phosphatase 134 H (38-126) U/L Total Protein 5.4 L (6.3-8.2) g/dL Albumin 3.1 L (3.5-5.0) g/dL Lipase 351 H (23-300) U/L Microbiology - Last 24 Hours (Table) 09/21/21 02:20 Blood Culture - Preliminary Blood No Growth after 48 hours 09/21/21 02:10 Blood Culture - Preliminary Blood No Growth after 48 hours Assessment and Plan (1) Pancreatitis Narrative/Plan: 61-year-old female with a history of gallbladder dysfunction for multiple years. Patient is not followed with a general surgeon. Started having symptoms since last Monday with yesterday becoming concerned with increased abdominal pain, nausea vomiting and dark urine. Patient was noted to have significant elevated amylase and lipase, as well as LFTs. Showing mild gallbladder wall thickening, no gallstones, no CBD dilation. Patient denies fevers or chills pain is improving. Was able to obtain patient's prior EGD/EUS from [facility] done on 01/03/2020. EGD revealed multiple rings seen in the esophagus status post biopsy, small sliding hiatal hernia, nodule seen and third portion of duodenum status post biopsies. Endoscopic ultrasound revealed pancreas parenchyma appeared normal, main pancreatic was not dilated. There was no cyst or mass lesions seen. Gallbladder appeared truncated with multiple gallstones, gallbladder wall is mildly thickened at 2.8 mm. Common bile duct not dilated, no. Pancreatic epigastric or celiac ulcers. Will obtain MRCP for further evaluation of possible choledocholithiasis clinical picture is consistent with gallstone pancreatitis. The patient had MRCP that shows no evidence of suggest ductal stricture, choledocholithiasis, or biliary ductal dilation. LFTs continued to improve. Lipase improving at 998 today. Abdominal pain improved as well. Likely patient passed CBD stone. No plans at this time for ERCP. Current Visit: Yes Status: Acute Code(s): K85.90 - ACUTE PANCREATITIS WITHOU T NECROSIS OR INFECTION, UNSP SNOMED Code(s): 56510805 (2) Cholecystitis Narrative/Plan: Continue with recommendations from general surgery. Current Visit: Yes Status: Acute Code(s): K81.9 - CHOLECYSTITIS, UNSPECIFIED SNOMED Code(s): 31550551 Plan: 1. Continue symptomatic and supportive care 2. Patient may have clear liquid diet 3. Continue IV antibiotics as ordered 4. Daily CMP 5. No indication for ERCP continue with recommendations from general surgery Thank you for this consultation. Dr. Renee Michael I agree with the dictator's note, documented as a scribe by Christina Benavidez.
[2021-09-23] MEDS ORDERED: GLYCOPYRROLATE 0.2 MG/ML 2 ML VIAL ONE (11:41)
[2021-09-23] MEDS ORDERED: MIDAZOLAM 2 MG/2 ML VIAL ONE (11:41)
[2021-09-23] MEDS ORDERED: LIDOCAINE 2% INJ 20 MG/ML (2 ML VIAL) ONE (11:41)
[2021-09-23] MEDS ORDERED: fentaNYL (PF) 50 MCG/ML 2 ML AMP ONE (11:41)
[2021-09-23] MEDS ORDERED: KETOROLAC 15 MG/ML 1 ML VIAL ONE (11:41)
[2021-09-23] MEDS ORDERED: SUCCINYLCHOLINE CHLORIDE 200 MG/10 ML VIAL IV ONE (11:41)
[2021-09-23] MEDS ORDERED: NEOSTIGMINE 1 MG/ML 10 ML VIAL ONE (11:41)
[2021-09-23] MEDS ORDERED: ROCURONIUM 10 MG/ML (5 ML VIAL) IV ONE (11:41)
[2021-09-23] MEDS ORDERED: PROPOFOL 10 MG/ML 20 ML VIAL IV ONE (11:41)
[2021-09-23] MEDS ORDERED: BUPIVACAIN-EPI 0.25%-1:200,000 30 ML VIAL SQ ONE ×2 (11:58→12:02)
--- NOTE | 2021-09-23 12:14 | P.OP ---
Date of Procedure: 09/23/21 Preoperative Diagnosis: Cholecystitis Cholelithiasis Postoperative Diagnosis: Same Procedure(s) Performed: Laparoscopic cholecystectomy Anesthesia: BRYANNA Surgeon: Shailesh Mccord Estimated Blood Loss (ml): 5 Pathology: other (gAll bladder) Condition: stable (gallbladder) Disposition: PACU Description of Procedure: The patient was placed on the operating table. The patient received a general endotracheal tube anesthesia. The patients abdomen was prepped and draped in the usual sterile fashion. Through an infraumbilical stab incision, the fascia of the anterior abdominal wall was grasped with a pair of Kochers and then the Veress needle was placed in the peritoneal cavity. Position of the Veress needle was confirmed with positive drop test. The abdomen was then insufflated. After adequate insufflation, the 10 mm trocar was placed in the peritoneal cavity. Following this the laparoscope was placed in the peritoneal cavity. The patient was placed in the head-up, right side up position and then a 5 mm trocar was placed in the right lateral and right subcostal position under direct visualization. A 8 mm trocar was placed in the epigastric position. The gallbladder was grasped in the fundus and infundibulum. Traction on the gallbladder was placed in the lateral and the cephalad positions. The triangle of Calot was visualized.. The cystic duct was bluntly dissected until the union of the cystic duct and common bile duct was seen. A critical view of safety was achieved. The cystic duct was then divided and sealed with the Harmonic scissors. A PDS Endoloop was then placed throughout the cystic duct stump. The cystic artery divided and sealed with the Harmonic scissors. The gallbladder was then removed from the liver bed using Harmonic scissors. The gallbladder was then extracted through the epigastric port site. Operative field was checked for any bleeding spots and Harmonic scissors was used to coagulate the liver bed. The abdomen was irrigated. The trocars were removed. The skin was closed using interrupted 3-0 Vicryl suture. Dermabond dressing were applied. The patient tolerated the procedure well.
[2021-09-23] MEDS ORDERED: HYDROmorphone 0.5 MG/0.5 ML SYRINGE IVP ONE ×2 (12:48→12:57)
[2021-09-23] MEDS ORDERED: LACTATED RINGERS 1,000 ML IV ONE (12:52)
[2021-09-23 13:02] VITALS: PULSE 50
[2021-09-23] MEDS ORDERED: HYDROcodone/APAP 5-325MG 1 EACH TAB PO PRN (14:46)
--- NOTE | 2021-09-23 14:55 | P.DS ---
Providers Date of admission: 09/21/21 00:47 Expected date of discharge: 09/23/21 Attending physician: Shailesh Mccord Consults: 09/21/21 03:08 Consult Physician Routine Consulting Provider: Melanie Michael Consult Reason/Comments: GSpancreatitis Do you want consulting provider notified?: Yes 09/21/21 12:39 Consult Physician Routine Consulting Provider: Taj Rivera Consult Reason/Comments: medical management Do you want consulting provider notified?: Yes Primary care physician: Prasad Cooley MD Hospital Course: Discharge diagnoses 1. Acute gallstone Pancreatitis. Patient likely passed a stone. 2. Cholecystitis status post laparoscopic cholecystectomy 3. Cholelithiasis Hospital course This is a 61-year-old female who presented to the hospital with complaints of right upper quadrant epigastric abdominal pain 1 week. Patient reports that she's had these types of abdominal pains off and on for years. She has a history of gallstones. Usually the pain resolves on its own. She does report increasing pain after eating greasy or fatty foods. She came into the ER because she started having vomiting and her urine became dark. She reports that the pain is in the right upper quadrant radiates the epigastric and down the right side of the abdomen. Her liver enzymes and pancreatic enzymes are elevated. MRCP no evidence to suggest ductal stricture, choledocholithiasis or biliary ductal dilatation. Iron deposition within the liver, gallbladder adenomyomatosis and colonic diverticulosis. Patient status post laparoscopic cholecystectomy. Patient tolerated surgery well. Her pain is controlled. She is tolerating diet. Afebrile. She has been up ambulating. Denies any difficulty urinating. She is stable for discharge. Please refer to chart for any further details. Patient Condition at Discharge: Stable Plan - Discharge Summary Discharge Rx Participant: No New Discharge Prescriptions: New Docusate [Colace] 100 mg PO BID PRN #30 capsule PRN Reason: Constipation HYDROcodone/APAP 5-325MG [[place] 5-325] 1 tab PO Q6HR PRN 3 Days #12 tab PRN Reason: Pain Continue Vitamin B Complex 1 cap PO DAILY No Action Atorvastatin [Lipitor] 10 mg PO DAILY Discharge Medication List Atorvastatin [Lipitor] 10 mg PO DAILY 09/26/17 [History] Vitamin B Complex 1 cap PO DAILY 09/21/21 [History] Docusate [Colace] 100 mg PO BID PRN #30 capsule 09/23/21 [Rx] HYDROcodone/APAP 5-325MG [[place] 5-325] 1 tab PO Q6HR PRN 3 Days #12 tab 09/23/21 [Rx] Follow up Appointment(s)/Referral(s): Prasad Cooley MD [Primary Care Provider] - 1-2 days Melanie Michael MD [STAFF PHYSICIAN] - As Needed Shailesh Mccord MD [STAFF PHYSICIAN] - 1 Week Activity/Diet/Wound Care/Special Instructions: No driving while taking [place] No lifting over 10 pounds Shower daily. No soaking or tub baths for 2 weeks Very light activity until you are reevaluated at your follow up appointment with your surgeon Hold on taking lipitor for 1 week until seen by PCP. Discharge Disposition: HOME SELF-CARE
[2021-09-23 15:48] VITALS: BP 141/88; RESP 18; TEMP 97.5
== END 2021-09-23 17:51 | disposition home or self-care (01) | DRG 417 ==
LOC: EC 20:40 → 5NMEDONC 09-21 00:47 → 4SSUR 09-21 18:22
PROVIDERS: ADMIT Surgery; ATTEND Surgery
PROC: 0FT44ZZ Resection of Gallbladder, Percutaneous Endoscopic Approach (ICD-10-PCS; principal; 2021-09-20)
DX: K85.10 Biliary acute pancreatitis without necrosis or infection (principal); J80 Acute respiratory distress syndrome; K57.32 Diverticulitis of large intestine without perforation or abscess without bleeding; K80.60 Calculus of gallbladder and bile duct with cholecystitis, unspecified, without obstruction; K44.9 Diaphragmatic hernia without obstruction or gangrene; K82.8 Other specified diseases of gallbladder; F17.200 Nicotine dependence, unspecified, uncomplicated; D25.9 Leiomyoma of uterus, unspecified; E78.5 Hyperlipidemia, unspecified; N39.3 Stress incontinence (female) (male); T73.0XXA Starvation, initial encounter; Z79.899 Other long term (current) drug therapy; Z82.49 Family history of ischemic heart disease and other diseases of the circulatory system; Z28.310 Unvaccinated for COVID-19; Z28.21 Immunization not carried out because of patient refusal; Z88.0 Allergy status to penicillin
CPT/HCPCS: 36415; 71046; 74181; 76705; 80053; 81001; 82150; 82550; 83605; 83690; 83735; 84100; 84484; 85025; 85027; 85610; 85730; 87040; 88304; 93005

== ENCOUNTER → 2022-06-07 | Outpatient (CLI) | payer BC ==
[2022-06-07 07:47] VITALS: BP 133/79; PULSE 66; RESP 17; TEMP 98
--- NOTE | 2022-06-07 08:37 | P.HPOB ---
History of Present Illness H&P Date: 06/07/22 Chief Complaint: The patient is here for her routine gynecologic exam and ma mmogram. This is a 62-year-old 012 with an LMP of 2012. The patient is without gynecologic complaints and denies any postmenopausal bleeding. Review of Systems The patient's weight has been stable over the last year. She denies respiratory, cardiac, or G.I. problems. Past Medical History Past Medical History: Hyperlipidemia Additional Past Medical History / Comment(s): PAST [employer] HISTORY: She has no history of STDs. She had a small uterine fibroids measuring 1.3 cm by ultrasound on 09/08/2014. History of Any Multi-Drug Resistant Organisms: None Reported Past Surgical History: Cholecystectomy Additional Past Surgical History / Comment(s): D&C-1979. Colonoscopy 2009, 2021(next after 10yr). 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 - Past Family History Sister(s) Family Medical History: Cancer Additional Family Medical History / Comment(s): Cervical cancer. Another sister had hypercalcemia and heart problems. Son(s) Family Medical History: AFIB Mother Family Medical History: Coronary Artery Disease (CAD) Brother(s) Family Medical History: Coronary Artery Disease (CAD) Additional Family Medical History / Comment(s): Pulmonary fibrosis. Medications and Allergies Home Medications Medication Instructions Recorded Confirmed Type Atorvastatin [Lipitor] 10 mg PO DAILY 09/26/17 06/07/22 History Vitamin B Complex 1 cap PO DAILY 09/21/21 06/07/22 History Allergies Allergy/AdvReac Type Severity Reaction Status Date / Time Penicillins Allergy Rash/Hives Verified 06/07/22 07:43 Exam Vital Signs Temp Pulse Resp BP Pulse Ox 06/07/22 07:44 98.0 F 66 17 133/79 97 Intake and Output 06/06/22 06/07/22 06/07/22 22:59 06:59 14:59 Other: Weight 76.204 kg Height 5 feet 2 inches, weight 168 pounds, BMI 30.7. This is a well-developed well-nourished white female who is alert and oriented times 3 in no acute distress. HEENT: Within normal limits. NECK: Supple without mass or thyromegaly. CHEST AND LUNGS: Clear to auscultation. HEART: Regular rate and rhythm. BREASTS: Are without mass or discharge. AXILLARY EXAM: Negative for adenopathy. BACK: Negative for CVA tenderness. ABDOMEN: Soft, nontender, without palpable masses. PELVIC EXAM: Normal external genitalia with mild atrophy. Cervix and vagina appear normal with mild atrophy. There is no unusual discharge. There is no evidence of prolapse. The uterus is midposition, nongravid size and nontender. There are no palpable adnexal masses or tenderness. RECTAL EXAM: Rectovaginal exam is negative for mass or tenderness and is negative for occult blood. EXTREMITIES: Nontender. IMPRESSION: 1. 62-year-old menopausal female with normal gynecologic exam. 2. History of small uterine fibroid, which is not noticeable on exam today. PLAN: 1. Pap smear cotest was performed. If this is negative, Pap smears will be discontinued after age 65. 2. Self breast awareness was discussed with the patient. We have also discussed symptoms associated with inflammatory breast cancer. 3. Screening mammogram was done today. 4. Osteoporosis prevention was discussed. She had a normal bone density test on 10/23/2019 and this will be repeated in approximately 2024. I have recommended that she quit smoking in we have discussed many reasons why this is important. 5. She was advised to return in one year for her annual well woman exam.
--- NOTE | 2022-06-08 10:22 | MM ---
Reason for Exam: Screening (asymptomatic). Last mammogram was performed 2 year(s) and 7 month(s) ago. Patient History: Menarche at age 12. First Full-Term at age 23. Postmenopausal. Risk Values: Maddy 5 year model risk: 1.4%. NCI Lifetime model risk: 6.0%. Prior Study Comparison: 08/27/2014 Bilateral Screening Mammogram, [facility]. 10/20/2017 Bilateral Screening Mammogram, [facility]. 10/23/2019 Bilateral Screening Mammogram, [facility]. Tissue Density: There are scattered fibroglandular densities. Findings: Analyzed By CAD. There is no suspicious group of microcalcifications or new suspicious mass in either breast. Chronic nodularity within left breast. Overall Assessment: Benign, BI-RAD 2 Management: Screening Mammogram of both breasts in 1 year. A clinical breast exam by your physician is recommended on an annual basis and results should be correlated with mammographic findings. Electronically signed and approved by: Guevara Da Silva D.O.
== END | disposition home or self-care (01) ==
LOC: RADMAMWWP 07:09
PROVIDERS: ATTEND Obstetrics & Gynecology
DX: Z12.31 Encounter for screening mammogram for malignant neoplasm of breast (principal); E78.5 Hyperlipidemia, unspecified; Z88.0 Allergy status to penicillin
CPT/HCPCS: 77067

== ENCOUNTER → 2024-01-10 | Outpatient (CLI) | payer BC ==
[2024-01-10 07:53] VITALS: BP 126/80; PULSE 71; RESP 17; TEMP 98.3
--- NOTE | 2024-01-10 08:26 | P.HPOB ---
History of Present Illness H&P Date: 01/10/24 Chief Complaint: The patient is here for her routine gynecologic exam and ma mmogram. This is a 63-year-old -0-1-2 with an LMP of 2012. The patient is without gynecologic complaints and denies any postmenopausal bleeding. Review of Systems The patient has lost 3 pounds over the last year. She denies respiratory, cardiac, or G.I. problems. Past Medical History Past Medical History: Hyperlipidemia Additional Past Medical History / Comment(s): PAST HUC OB HISTORY: She has no history of STDs. She had a small uterine fibroids measuring 1.3 cm by ultrasound on 09/08/2014. History of Any Multi-Drug Resistant Organisms: None Reported Past Surgical History: Cholecystectomy Additional Past Surgical History / Comment(s): D&C-1979. Colonoscopy 2009, 2021(next after 10yr). 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 - Past Family History Sister(s) Family Medical History: Cancer Additional Family Medical History / Comment(s): Cervical cancer. Another sister had hypercalcemia and heart problems. Son(s) Family Medical History: AFIB Mother Family Medical History: Coronary Artery Disease (CAD) Brother(s) Family Medical History: Coronary Artery Disease (CAD) Additional Family Medical History / Comment(s): Pulmonary fibrosis. Medications and Allergies Home Medications Medication Instructions Recorded Confirmed Type Atorvastatin [Lipitor] 10 mg PO DAILY 09/26/17 01/10/24 History Vitamin B Complex 1 cap PO DAILY 09/21/21 01/10/24 History Allergies Allergy/AdvReac Type Severity Reaction Status Date / Time Penicillins Allergy Rash/Hives Verified 01/10/24 07:50 Exam Vital Signs Temp Pulse Resp BP Pulse Ox 01/10/24 07:51 98.3 F 71 17 126/80 98 Intake and Output 01/09/24 01/10/24 01/10/24 22:59 06:59 14:59 Other: Weight 74.843 kg Height 5 feet 2 inches, weight 165 pounds, BMI 30.2. This is a well-developed well-nourished white female who is alert and oriented times 3 in no acute distress. HEENT: Within normal limits. NECK: Supple without mass or thyromegaly. CHEST AND LUNGS: Clear to auscultation. HEART: Regular rate and rhythm. BREASTS: Are without mass or discharge. The patient states there was a pimple- like lesion on the left breast at the 4 o'clock position and she had picked it and now there is a reddish area at that spot. There is a small flat reddish area that appears completely benign and measures about 6 x 7 mm. AXILLARY EXAM: Negative for adenopathy. BACK: Negative for CVA tenderness. ABDOMEN: Soft, nontender, without palpable masses. PELVIC EXAM: Normal external genitalia with mild atrophy. Cervix and vagina appear normal with mild atrophy. There is no unusual discharge. There is no evidence of prolapse. The uterus is midposition, nongravid size and nontender. There is a palpable mass that is irregular and fairly firm to the left of the midline near the apex of the vagina. This is somewhat mobile and nontender. RECTAL EXAM: Rectovaginal exam also reveals a 4 cm mass to the left of the midline near the vaginal apex. There is also soft stool in the rectum. I could not confirm that the above mass was stool since it was not directly palpable with rectal finger. EXTREMITIES: Nontender. IMPRESSION: 1. 63-year-old menopausal female with a 4 cm palpable mass on pelvic exam and rectovaginal exam. Differential diagnosis will include colonic stool, palpable ovary, ovarian mass, or uterine fibroid. 2. History of small uterine fibroid by ultrasound 2014 measuring 1.3 cm. This was not previously palpable on last year's exam. PLAN: 1. Pap smears will be discontinued because she had a negative Pap smear cotest on 06/07/2022 and she will be over 64 when her next Pap smear would be due. 2. Self breast awareness was discussed with the patient. We have also discussed symptoms associated with inflammatory breast cancer. 3. Screening mammogram will be done today. 4. Pelvic ultrasound was recommended. Of also recommended that she try to empty her her rectum as completely as possible prior to the exam. She can use a stool softener laxative such as Senokot, if necessary. The order slip was given to the patient for the ultrasound. 5. Osteoporosis prevention was discussed. Bone density testing will be done today. 6. She was advised to return in one year for her annual well woman exam and as needed.
--- NOTE | 2024-01-10 08:50 | BD ---
EXAMINATION TYPE: Axial Bone Density DATE OF EXAM: 01/10/2024 CLINICAL HISTORY: 63 years old Female. ICD-10 CODE: Z78.2 POST MENOPAUSE , Additional History: Height: 64.5 Weight: 162.7 FRAX RISK QUESTIONS: Alcohol (3 or more units per day): no Family History (Parent hip fracture): no Glucocorticoids (More than 3mos): no (Ex: prednisone, prednisolone, methylprednisolone, dexamethasone, and hydrocortisone). History of Fracture in Adulthood: no Secondary Osteoporosis: 1. Type 1 Diabetes: no 2. Hyperthyroidism: no 3. Menopause before 45: no 4. Malnutrition: no 5. Chronic liver disease: no Rheumatoid Arthritis: no Current Tobacco Use: yes RISK FACTORS HISTORY OF: Hip Fracture (Right/Left): no Spine Fracture: no History of Wrist Fracture: no Surgery to Spine/Hip(right/left)/Wrist (right/left): no MEDICATIONS: Thyroid Medications: no Osteoporosis Medications: no EXAM MEASUREMENTS: Bone mineral densitometry was performed using the [employer] [facility]. Bone mineral density as measured about the Lumbar spine is: ----- L1-L4(G/cm2): 1.088 T Score Values are as follows: ----- L1: -1.4 ----- L2: -1.0 ----- L3: 0.0 ----- L4: -0.9 ----- L1-L4: 0.8 Z Score Values are as follows: ----- L1: -0.2 ----- L2: 0.3 ----- L3: 1.3 ----- L4: 0.4 ----- L1-L4: 0.5 Bone mineral density has: increased 0.3 % since study of: 10/23/2019 Bone mineral density about the R hip (g/cm2): 1.006 Bone mineral density about the L hip (g/cm2): 0.986 T Score values are as follows: -----R Neck: -0.6 -----L Neck: -1.0 -----R Total: 0.0 -----L Total: -0.2 Z Score values are as follows: -----R Neck: 0.7 -----L Neck: 0.2 -----R Total: 0.9 -----L Total: 0.8 Bone mineral density has: increased 2.6 % since study of: 10/23/2019 FRAX%s: The graph provided illustrates a 7.6% chance for a major osteoporotic fx and a 0.9% chance fo r the hips probability for fx in 10 years time. IMPRESSION: Normal (Values between +1 and -1 indicate normal bone mass). Consider repeating this study in 5 year s or sooner if there is some new clinical indication. NOTE: T-SCORE=SD OF THE YOUNG ADULT MEAN. [facility], , 01/10/2024 8:47 AM
--- NOTE | 2024-01-11 14:39 | MM ---
Reason for Exam: Screening (asymptomatic). Last mammogram was performed 1 year(s) and 7 month(s) ago. Patient History: Menarche at age 12. First Full-Term at age 23. Postmenopausal. Risk Values: Maddy 5 year model risk: 1.4%. NCI Lifetime model risk: 5.8%. Prior Study Comparison: 10/20/2017 Bilateral Screening Mammogram, [facility]. 10/23/2019 Bilateral Screening Mammogram, [facility]. 06/07/2022 Bilateral MG screening mammo w CAD, [facility]. Tissue Density: There are scattered areas of fibroglandular density. Findings: Analyzed By CAD. There is no suspicious group of microcalcifications or new suspicious mass in either breast. Overall Assessment: Negative, BI-RAD 1 Management: Screening Mammogram of both breasts in 1 year. . Patient should continue monthly self-breast exams. A clinical breast exam by your physician is recommended on an annual basis. This exam should not preclude additional follow-up of suspicious palpable abnormalities. Note on Maddy scores and lifetime risk: 1. A Maddy score greater than 3% is considered moderate risk. If this is the case, consider specialist referral to assess eligibility for a risk reducing agent. 2. If overall lifetime risk for the development of breast cancer is 20% or higher, the patient may qualify for future screening with alternating mammogram and breast MRI. [facility], , 01/11/2024 2:36 PM. Electronically signed and approved by: Gwyn Parker M.D. Radiologis
== END ==
LOC: WWCWWP 07:39
PROVIDERS: ATTEND Obstetrics & Gynecology
DX: Z12.31 Encounter for screening mammogram for malignant neoplasm of breast (principal); R92.8 Other abnormal and inconclusive findings on diagnostic imaging of breast; R92.323 Mammographic fibroglandular density, bilateral breasts; F17.210 Nicotine dependence, cigarettes, uncomplicated; Z78.0 Asymptomatic menopausal state; Z88.0 Allergy status to penicillin; Z87.42 Personal history of other diseases of the female genital tract
CPT/HCPCS: 77067; 77080

== ENCOUNTER → 2024-01-22 | Outpatient (CLI) | payer BC ==
--- NOTE | 2024-01-22 11:52 | US ---
EXAMINATION TYPE: US pelvis complete transvag DATE OF EXAM: 01/22/2024 COMPARISON: NONE CLINICAL INDICATION: Female, 63 years old with history of R68.89 R19.09 INTRAAB PELVIC SWELLING MASS LUMP; felt lump on left side during pap smear. . No pelvic surgeries TECHNIQUE: Transvaginal (TV) and Transabdominal (TA) . FINDINGS: Date of LMP: Around 12-14 years agoq EXAM MEASUREMENTS: Uterus: 8.0 x 4.3 x 2.4 cm Endometrial Stripe: 0.23 cm Right Ovary: 2.0 x 1.1 x 1.2 cm Left Ovary: 2.7 x 2.3 x 1.3 cm 1. Uterus: Anteverted appears wnl. Fundus limited transvaginally due to bladder shadowing 2. Endometrium: wnl 3. Right Ovary: appears wnl 4. Left Ovary: appears wnl 5. Bilateral Adnexa: wnl 6. Posterior cul-de-sac: wnl IMPRESSION: No discrete abnormality appreciated. Portions of the study is limited as noted. [facility], , 01/22/2024 11:49 AM
--- NOTE | 2024-01-23 11:15 | P.PN ---
Progress Note - Text Progress Note Date: 01/23/24 OUTPATIENT FOLLOW-UP NOTE TEST(S)/RESULTS: Pelvic ultrasound done on 01/22/2024 was unremarkable. Ovaries were both within normal limits. METHOD OF NOTIFICATION: Patient was notified by phone on 01/23/2024. PATIENT COMMENTS: She is happy to hear these results. DIAGNOSIS: Negative pelvic ultrasound. DISCUSSION: The mass felt on bimanual examination is now most likely to be colonic stool. No further workup is needed. PLAN: As above.
== END | disposition home or self-care (01) ==
LOC: RADUSWWP 06:50
PROVIDERS: ATTEND Obstetrics & Gynecology
DX: R68.89 Other general symptoms and signs (principal); R19.09 Other intra-abdominal and pelvic swelling, mass and lump
CPT/HCPCS: 76830; 76856